=== PATIENT | male | born 1935 | race Caucasian/White ===

== ENCOUNTER → 2017-02-05 | Outpatient (CLI) | payer MEDICARE, BC | LOC: RAD 11:15 | DX: R06.00 Dyspnea, unspecified (principal); J98.4 Other disorders of lung; R91.1 Solitary pulmonary nodule ==

== ENCOUNTER 2019-07-28 13:50 | Emergency (ER) | payer MEDICARE, BC ==
[~2019-07-28 13:50] MED LIST: ATENOLOL25 MG PO; FLOMAX0.4 MG PO; SINGULAIR 110 MG/TAB PO; THEOPHYLLINE400 M1 PO; ULTRAM50 M1 PO
[2019-07-28 14:20] LABS: BASO # 0.1 (0.02-0.10); EOS # 0.2 (0.04-0.40); EOS % 2.6 % (0.0-4.0); HEMATOCRIT 48.2 % (42.0-52.0); LYMPH# 1.4 (1.50-4.00); MEAN CELL VOLUME 85 fl (78-100); MEAN CORPUSCULAR HEMOGLOBIN 30 pg (27-31); MEAN CORPUSCULAR HGB CONC 35 g/dL (33-37); MEAN PLATELET VOLUME 10.6 fl (7.4-10.4); MONO # 0.9 (0.20-0.80); NEU # 6.3 (1.40-6.50); PLATELET COUNT 248 K/mm3 (130-400); RED BLOOD COUNT 5.69 M/mm3 (4.20-5.60); RED CELL DISTRIBUTION WIDTH 14.2 % (11.5-14.5)
[2019-07-28 14:23] LABS: ALBUMIN 4.3 g/dL (3.4-4.8)
[2019-07-28 14:25] LABS: CALCIUM 10.5 mg/dL (8.3-10.5)
[2019-07-28 14:26] LABS: TOTAL PROTEIN 7.1 g/dL (6.2-8.1)
[2019-07-28 14:28] LABS: TOTAL BILIRUBIN 0.6 mg/dL (0.2-1.2)
[2019-07-28 15:45] LABS: POTASSIUM 3.8 mmol/L (3.5-5.1)
[2019-07-28 16:15] LABS: URINE APPEARANCE CLEAR; URINE COLOR YELLOW
[2019-07-28 16:16] LABS: URINE BILIRUBIN NEGATIVE (NEGATIVE); URINE BLOOD TRACE (NEGATIVE); URINE GLUCOSE NEGATIVE (NEGATIVE); URINE KETONE NEGATIVE (NEGATIVE); URINE LEUKOCYTE ESTERASE NEGATIVE (NEGATIVE); URINE MUCUS PRESENT (NOT PRESENT); URINE NITRATE NEGATIVE (NEGATIVE); URINE PROTEIN(semi-quant) TRACE mg/dL (NEGATIVE); URINE UROBILINOGEN NORMAL (NORMAL)
[2019-07-28 17:29] VITALS: BP 139/96
== END 2019-07-28 17:24 | disposition home or self-care (01) ==
LOC: ED 13:50
PROVIDERS: Physician Assistant
DX: N20.0 Calculus of kidney (principal); E11.9 Type 2 diabetes mellitus without complications; J44.9 Chronic obstructive pulmonary disease, unspecified; Z79.891 Long term (current) use of opiate analgesic; Z90.49 Acquired absence of other specified parts of digestive tract; Z98.890 Other specified postprocedural states
CPT/HCPCS: J1885; J3010